=== PATIENT | male | born 1960 | race Caucasian/White ===

== ENCOUNTER 2022-11-01 16:10 | Outpatient (CLI) | payer OTHER, SELFPAY ==
--- NOTE | ~2022-11-01 | XR_ITS ---
EXAM: XR lumbar spine 2-3V DATE: 11/01/2022 16:25 HISTORY: acute midline low back pain without sciatica . COMPARISON: None available. FINDINGS: 5 nonrib-bearing lumbar-type vertebral bodies. Pedicles intact. Normal vertebral body alig nment. Vertebral body heights preserved. Multilevel mild disc space narrowing and moderate osteophyto sis, including early bridging osteophyte formation anteriorly.. Mild hypertrophy and sclerosis in the lower lumbar spine facets. No fracture or dislocation. Fusiform dilation of the calcified abdominal aorta. IMPRESSION: Multilevel mild degenerative disc disease. Multilevel mild lower lumbar facet arthropathy . 3.3 cm fusiform abdominal aortic aneurysm, recommend ultrasound of the abdominal aorta for further characterization. Reviewed, dictated and finalized at location K. IMPRESSION: Multilevel mild degenerative disc disease. Multilevel mild lower jennifer mbar facet arthropathy. 3.3 cm fusiform abdominal aortic aneurysm, recommend ul trasound of the abdominal aorta for further characterization.
== END 2022-11-01 16:11 ==
PROVIDERS: PCP Nurse Practitioner Family; Visit Provider Nurse Practitioner Family
DX: M51.36 Other intervertebral disc degeneration, lumbar region (principal); I71.40 Abdominal aortic aneurysm, without rupture, unspecified
CPT/HCPCS: 72100

== ENCOUNTER → 2023-03-07 14:02 | Outpatient (CLI) | payer OTHER, SELFPAY ==
--- NOTE | ~2023-03-07 | MR_ITS ---
EXAMINATION: MR abdomen wo/w con DATE: 03/07/2023 15:43 INDICATION: Right renal mass on prior CT TECHNIQUE: Magnetic resonance imaging (MRI) of the abdomen was performed without and with 20 mL Multi louis intravenous contrast. Sequences included coronal T2-weighted SS-FSE, coronal and axial FS 2D-F IESTA, axial STIR FSE, axial T2-weighted SS-FSE, axial T2-weighted FS SS-FSE, axial diffusion-weighte d SE, axial dual-echo T1-weighted FSPGR, and axial and coronal T1-weighted LAVA. Postcontrast axial T 1-weighted LAVA images were obtained in a time course. Postcontrast coronal T1-weighted LAVA images w ere obtained. COMPARISON: None. FINDINGS: Heart size is normal. No pericardial or pleural effusion. Mild bilateral gynecomastia. Diffuse hepati c steatosis with signal dropout on opposed phase imaging. Focal adenomyomatosis versus phrygian cap a t the tip of the gallbladder fundus. Spleen, pancreas and bilateral adrenal glands are normal. There are bilateral nonenhancing renal cysts, the largest a 3.4 cm simple appearing T2 hyperintense cyst at the upper pole of the left kidney. 1.5 cm T1 hyperintense, T2 hypointense nonenhancing exophytic cys t at the lower pole of the left kidney presumed be representing the lesion of concern based on prior CT. There is a second 7 mm T1 hyperintense nonenhancing proteinaceous cyst with less than simple flui d T2 hyperintensity at the lateral lower pole of the right kidney. The visualized portion of the allison ls are unremarkable with no obstruction. No pathologically enlarged abdominal lymphadenopathy. There is normal bone marrow signal throughout. IMPRESSION: 1. Bilateral nonenhancing renal cysts including an exophytic 1.5 cm proteinaceous/hemorrhagic cyst at the lower pole of the left kidney. This presumably represents the lesion of concern on the prior CT however imaging has not been submitted for direct comparison. Reviewed, dictated and finalized at location A. [employer] IMPRESSION: 1. Bilateral nonenhancing renal cysts including an exophytic 1.5 cm proteinaceo us/hemorrhagic cyst at the lower pole of the left kidney. This presumably repre sents the lesion of concern on the prior CT however imaging has not been submit [place] for direct comparison.
== END ==
PROVIDERS: PCP Urology; Visit Provider Urology
DX: N28.89 Other specified disorders of kidney and ureter (principal); N28.1 Cyst of kidney, acquired
CPT/HCPCS: 74183; A9577

== ENCOUNTER 2024-02-09 16:37 | Outpatient (CLI) | payer BC, SELFPAY ==
--- NOTE | ~2024-02-09 | XR_ITS ---
EXAMINATION: XR chest 2V DATE: 02/09/2024 16:55 INDICATION: Acute cough TECHNIQUE: frontal view of the chest was obtained. COMPARISON: Chest radiograph dated 08/07/2017 FINDINGS: Again seen are few scattered small calcified nodules along with calcified hilar and mediastinal lymph nodes consistent with old granulomatous disease. No new airspace opacities, pulmonary edema, pleural effusion or pneumothorax. Heart size is normal. Mild thoracic spondylosis. IMPRESSION: 1. No acute cardiopulmonary disease. Reviewed, dictated and finalized at location A.
== END 2024-02-09 16:38 | disposition home or self-care (01) ==
DX: R05.1 Acute cough (principal)
CPT/HCPCS: 71046